=== PATIENT | female | born 1955 | race Caucasian/White ===

== ENCOUNTER 2017-07-09 16:06 | Emergency (ER) | payer OTHER ==
[2017-07-09 16:17] VITALS: BP 122/76
[2017-07-09] MEDS ORDERED: Bacitracin Oint 1 GM U/D Packet TOP ONE (16:26)
--- NOTE | 2017-07-09 16:27 | EDM.PDOC ---
ED HPI GENERAL MEDICAL PROBLEM - General Chief Complaint: Laceration Stated Complaint: [facility] Time Seen by Provider: 07/09/17 16:27 Source of Information: Reports: Patient History Limitations: Reports: No Limitations - History of Present Illness INITIAL COMMENTS - FREE TEXT/NARRATIVE: pt got her middle finger caught in a wheel chair. She has swelling at the tip of the finger. She has 2 lacerations at the tip. i Onset: Today Duration: Hour(s): Location: Reports: Upper Extremity, Right Associated Symptoms: Reports: No Other Symptoms - Related Data Allergies Allergy/AdvReac Type Severity Reaction Status Date / Time erythromycin base Allergy Cannot Verified 07/09/17 16:12 Remember erythromycin lactobionate Allergy Cannot Verified 07/09/17 16:12 [From Erythrocin] Remember Penicillins Allergy Cannot Verified 07/09/17 16:12 Remember Home Meds: Home Meds Citalopram [Citalopram Hbr] 20 mg PO DAILY 09/09/14 [History] Mirtazapine 7.5 mg PO BEDTIME 09/09/14 [History] Thyroid,Pork [Nature-Throid] 32.5 mg PO DAILY 09/09/14 [History] Past Medical History 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: Neurological History: Reports: Seizure Psychiatric History: Reports: Dementia - Infectious Disease History Infectious Disease History: Reports: Chicken Pox Social & Family History - Tobacco Use Smoking Status *Q: Never Smoker Second Hand Smoke Exposure: No - Alcohol Use Days Per Week of Alcohol Use: 0 - Recreational Drug Use Recreational Drug Use: No ED ROS GENERAL - Review of Systems Review Of Systems: See Below Constitutional: Reports: No Symptoms HEENT: Reports: No Symptoms Respiratory: Reports: No Symptoms Cardiovascular: Reports: No Symptoms Endocrine: Reports: No Symptoms GI/Abdominal: Reports: No Symptoms : Reports: No Symptoms Musculoskeletal: Reports: Other (laceration of the tip of the rt middle finger) Neurological: Reports: No Symptoms ED EXAM, SKIN/RASH Exam: See Below Text/Narrative:: pt has a laceration at the tip of the rt middle finger. He has a small 1/8 nch laceration and a 1/4 inch laceration. these were cleaned well and infiltrated with lidocaine, The wound was closed with 5-0 prolemne. The tip of the finger was quite swollen and it was xrayed to rule out a fracture Exam Limited By: No Limitations General Appearance: Alert, Anxious (Female) Exam: Other Extremities: No: Other (pt has 2 lacerATIONS AT THE TIPOF HER MIDDLE RT FINGER. iT WAS CLEANSED WELL AND INFILTRATED WITH LIDOCAINE. tHE WOUNDS WERE CLOSED WITH 5-0 PROLENE. tHE TIP OF THE FINGER WAS SWOLLEN SO A XRAY OF THE FINGER WAS OBTAINED. ) Course - Vital Signs Last Recorded V/S: Last Vital Signs Temp 36.5 C 07/09/17 16:14 Pulse 95 07/09/17 16:14 Resp 16 07/09/17 16:14 BP 122/76 07/09/17 16:14 Pulse Ox 97 07/09/17 16:14 - Orders/Labs/Meds Orders: Active Orders 24 hr Category Date Time Status Fingers Third Digit Rt F7 [CR] Stat Exams 07/09/17 16:52 Taken Meds: Medications Discontinued Medications Generic Name Dose Route Start Last Admin Trade Name Freq PRN Reason Stop Dose Admin Bacitracin 1 dose 07/09/17 16:26 07/09/17 16:57 Bacitracin Oint 1 Gm TOP 07/09/17 16:27 1 dose ONETIME ONE Administration Lidocaine HCl 5 ml 07/09/17 16:25 07/09/17 16:57 Xylocaine-Mpf 1% INJECT 07/09/17 16:26 5 ml ONETIME ONE Administration - Re-Assessments/Exams Free Text/Narrative Re-Assessment/Exam: 07/09/17 17:24 XRAY REVEALED NO FRACTURES Departure - Departure Time of Disposition: 17:25 Disposition: Home, Self-Care 01 Condition: Fair Clinical Impression: Laceration - Discharge Information Referrals: Jose De Jesus Mendoza Sr, MD [Primary Care Provider] - Forms: ED Department Discharge Care Plan Goals: KEEP COVERED AND DRY, SR IN 7-8 DAYS. - My Orders Last 24 Hours: My Active Orders 07/09/17 16:52 Fingers Third Digit Rt F7 [CR] Stat - Assessment/Plan Last 24 Hours: My Active Orders 07/09/17 16:52 Fingers Third Digit Rt F7 [CR] Stat
--- NOTE | 2017-07-10 09:17 | CR ---
Fracture of the third distal phalanx. Tiny lucency within the soft tissues could indicate laceration.
== END 2017-07-09 17:48 | disposition home or self-care (01) ==
LOC: JP.ED 16:06
DX: S61.212A Laceration without foreign body of right middle finger without damage to nail, initial encounter (principal); Z88.0 Allergy status to penicillin; Z88.1 Allergy status to other antibiotic agents; Z79.899 Other long term (current) drug therapy; W23.0XXA Caught, crushed, jammed, or pinched between moving objects, initial encounter
CPT/HCPCS: 12001; 73140-26-F7; 73140-F7; 99283-25; 99284